=== PATIENT | female | born 1995 | race Caucasian/White ===

== ENCOUNTER 2024-10-23 06:11 | Inpatient (IN) | payer BC ==
[2024-10-23] MEDS ORDERED: Sodium Chloride 0.9% 10 ML Syringe FLUSH PRN (07:03)
[2024-10-23] MEDS ORDERED: Ondansetron 4 MG/2 ML SDV IVPUSH PRN (07:03)
[2024-10-23] MEDS ORDERED: Nalbuphine 10 MG/1 ML Vial IVPUSH PRN (07:03)
[2024-10-23] MEDS ORDERED: Oxytocin/0.9 % Sodium Chloride 30 UNIT/500 ML BAG IV SCH (07:15)
[2024-10-23 07:30] LABS: BASOPHILS ABSOLUTE AUTO 0.0 K/mm3 (0.0-0.2); BASOPHILS PERCENT AUTO 0.4 % (0.0-1.0); EOSINOPHILS ABSOLUTE AUTO 0.1 K/mm3 (0.0-0.4); EOSINOPHILS PERCENT AUTO 0.5 % (0.0-6.0); IMMATURE GRAN ABSOLUTE AUTO 0.07 K/mm3 (0.00-0.05); IMMATURE GRAN PERCENT AUTO 0.6 % (0.0-0.4); LYMPHOCYTES ABSOLUTE AUTO 1.9 K/mm3 (1.0-4.8); LYMPHOCYTES PERCENT AUTO 17.5 % (24.0-44.0); MEAN PLATELET VOLUME 10.7 fl (9.4-12.3); MONOCYTES ABSOLUTE AUTO 0.8 K/mm3 (0.0-0.8); MONOCYTES PERCENT AUTO 7.5 % (0.0-8.0); NEUTROPHILS ABSOLUTE AUTO 8.1 K/mm3 (1.8-7.7); NEUTROPHILS PERCENT AUTO 73.5 % (41.0-71.0); NRBC ABSOLUTE 0.00 (0.00-0.02); NRBC PERCENT 0.0 % (0.0-0.2); PLATELET COUNT,PLT 246 K/mm3 (150-400); RED BLOOD CELL COUNT 3.91 M/mm3 (4.10-5.30); WHITE BLOOD CELL COUNT,WBC 11.00 K/mm3 (3.9-11.3)
[2024-10-23] MEDS: Penicillin G Potassium 5 MILLUNITS in Sodium Chloride 0.9% 100 ML IV SCH (08:19)
[2024-10-23] MEDS: Lactated Ringers 1,000 ML IV SCH (08:19)
[2024-10-23] MEDS ORDERED: Penicillin G Potassium 2.5 MILLUNITS in Sodium Chloride 0.9% 100 ML IV SCH ×2 (11:30→12:00)
[2024-10-23] MEDS: Sodium Chloride 0.9% 10 ML Syringe FLUSH SCH (12:04)
[2024-10-23] MEDS: Penicillin G Potassium 2.5 MILLUNITS in Sodium Chloride 0.9% 100 ML IV SCH (12:05)
[2024-10-23] MEDS: Oxytocin/0.9 % Sodium Chloride 30 UNIT/500 ML BAG IV SCH (12:22)
[2024-10-23] MEDS ORDERED: ePHEDrine 50 MG/ML SDV IVPUSH PRN (13:19)
[2024-10-23] MEDS ORDERED: diphenhydrAMINE 50 MG/ML SDV IVPUSH PRN (13:19)
[2024-10-23] MEDS ORDERED: fentaNYL 100 MCG/2 ML SDV EPIDUR PRN (13:19)
[2024-10-23] MEDS: Bupivacaine/fentaNYL/NS 100 ML Bag EPIDUR PRN (13:23)
[2024-10-23] MEDS: Witch Hazel Medicated Pads 40/Jar TOP PRN (21:47)
[2024-10-23] MEDS: Benzocaine/Menthol 20%-0.5% Spray 78 GM Cannister TOP PRN (21:47)
== END 2024-10-25 10:10 | disposition home or self-care (01) | DRG 560 ==
LOC: JD.OBCHECK 06:11 → JD.OB 06:15 → JD.OBCHECK 07:02 → JD.OB 07:13 → JD.MS 11:03 → JD.OB 11:08 → OBSVTOIN 19:45 → JD.OB 19:46
PROVIDERS: ADMIT Obstetrics & Gynecology; ATTEND Obstetrics & Gynecology
PROC: 3E0R3BZ Introduction of Anesthetic Agent into Spinal Canal, Percutaneous Approach (ICD-10-PCS; principal; 2024-10-23)
PROC: 0KQM0ZZ Repair Perineum Muscle, Open Approach (ICD-10-PCS; principal; 2024-10-23)
PROC: 10E0XZZ Delivery of Products of Conception, External Approach (ICD-10-PCS; principal; 2024-10-23)
DX: O34.211 Maternal care for low transverse scar from previous cesarean delivery (principal); O99.824 Streptococcus B carrier state complicating childbirth; O99.02 Anemia complicating childbirth; O70.1 Second degree perineal laceration during delivery; Z3A.39 39 weeks gestation of pregnancy; Z37.0 Single live birth; Z79.899 Other long term (current) drug therapy; Z98.890 Other specified postprocedural states
CPT/HCPCS: 36415; 51702; 59025; 59409; 85025; 86592; 86850; 86900; 86901; A9270-GY; J2540; J3490; J7120; J7999